=== PATIENT | male | born 1985 | race Caucasian/White ===

== ENCOUNTER 2021-10-06 17:03 | Inpatient (IN) | payer BC ==
[2021-10-06 21:03] VITALS: BMI 55.0
[2021-10-06] MEDS ORDERED: Ondansetron PF 4 MG/2 ML Vial IVP PRN (21:33)
[2021-10-06] MEDS ORDERED: Albuterol 200 PUFF (6.7GM INHALER) INH PRN (21:51)
[2021-10-06] MEDS ORDERED: hydrALAZINE 20 MG/ML VIAL SLOW IVP PRN (22:36)
[2021-10-06 22:48] LABS: #Eosinphils 0.1 thou/uL (0.0-0.7); #Lymphocytes 2.1 thou/uL (1.20-3.40); #Monocytes 0.9 thou/uL (0.11-0.59); #Neutrophils 11.7 thou/uL (1.40-6.50); %Basophils 0.2 % (0.0-1.0); %Eosinophils 0.6 % (0.0-10.0); %Lymphocytes 14.1 % (21.0-51.0); %Monocytes 6.3 % (0.0-10.0); %Neutrophils 78.8 % (42.0-75.0); Hemoglobin 15.5 g/dL (14.0-18.0); Mean Corpuscular HGB CONC 30.5 g/dL (32.0-36.0); Mean Corpuscular Hemoglobin 27.8 pg (27.0-31.0); Mean Corpuscular Volume 91.4 fL (78.0-98.0); Mean Platelet Volume 8.9 fL (7.4-10.4); Platelet Count 237 thou/uL (130-400); RBC Distribution Width 19.5 % (11.5-14.5); Red Blood Cell (RBC) Count 5.58 mill/uL (4.70-6.10); White Blood Cell (WBC) Count 14.9 thou/uL (4.8-10.8)
[2021-10-06] MEDS ORDERED: Sodium Chloride 0.9% 1,000 ML IV SCH (23:00)
[2021-10-06] MEDS ORDERED: Enoxaparin Sodium 40 MG/0.4 ML SYRINGE SC SCH (23:00)
[2021-10-06] MEDS ORDERED: Pantoprazole 40 MG VIAL IVP SCH (23:00)
[2021-10-06 23:07] LABS: Anion Gap 17 mmol/L (10-20); BUN (Urea Nitrogen) 36 mg/dL (8.9-20.6); Calc. Creatinine Clearance 296 mL/min (70-130); Calcium 8.1 mg/dL (7.8-10.44); Carbon Dioxide 25 mmol/L (22-29); Chloride 100 mmol/L (98-107); Estimated GFR 99; Glucose 114 mg/dL (70-105); Potassium 5.5 mmol/L (3.5-5.1); Sodium 136 mmol/L (136-145)
[2021-10-06] MEDS: Nicotine 21 MG PATCH TD SCH (23:55)
[2021-10-06] MEDS: Clindamycin/D5W 900 MG in Premix Bag 1 BAG IVPB SCH (23:59)
[2021-10-07] MEDS ORDERED: hydrOXYzine 25 MG TAB PO SCH (04:15)
[2021-10-07] MEDS: Acetaminophen 325 MG TAB PO PRN (04:18)
[2021-10-07 05:47] LABS: #Eosinphils 0.1 thou/uL (0.0-0.7); #Lymphocytes 1.6 thou/uL (1.20-3.40); #Monocytes 0.9 thou/uL (0.11-0.59); #Neutrophils 12.5 thou/uL (1.40-6.50); %Basophils 0.1 % (0.0-1.0); %Eosinophils 0.5 % (0.0-10.0); %Lymphocytes 10.6 % (21.0-51.0); %Monocytes 5.9 % (0.0-10.0); Hemoglobin 14.5 g/dL (14.0-18.0); Mean Corpuscular HGB CONC 29.8 g/dL (32.0-36.0); Mean Corpuscular Hemoglobin 27.6 pg (27.0-31.0); Mean Corpuscular Volume 92.7 fL (78.0-98.0); Platelet Count 241 thou/uL (130-400); RBC Distribution Width 18.8 % (11.5-14.5); Red Blood Cell (RBC) Count 5.24 mill/uL (4.70-6.10)
[2021-10-07 05:48] LABS: ALT (SGPT) 15 U/L (8-55); AST (SGOT) 13 U/L (5-34); Albumin 3.7 g/dL (3.5-5.0); Alkaline Phosphatase 42 U/L (40-110); Anion Gap 14 mmol/L (10-20); BUN (Urea Nitrogen) 35 mg/dL (8.9-20.6); Bilirubin, Total 0.6 mg/dL (0.2-1.2); Calc. Creatinine Clearance 274 mL/min (70-130); Carbon Dioxide 27 mmol/L (22-29); Cardiac Risk 4.2 (Less than 4.5); Chloride 99 mmol/L (98-107); Cholesterol 122 mg/dl (< 200 Desired); Estimated GFR 91; Globulin 3.9 g/dL (2.4-3.5); Glucose 115 mg/dL (70-105); HDL Cholesterol 29 mg/dL (>60 Neg Risk); LDL Cholesterol, Calculated 76 mg/dL; Potassium 5.8 mmol/L (3.5-5.1); Protein, Total 7.6 g/dL (6.0-8.3); Sodium 134 mmol/L (136-145); Triglycerides 87 mg/dL (Less than 150)
[2021-10-07 08:44] LABS: Base Excess (BEa) 2.2 mEq/L (-2.0 to +3.0); Calcium, Ionized (arterial) 1.08 mmol/L (1.12-1.30); Carboxyhemoglobin (COHb) 2.3 gm% (0.0-3.0); Hemoglobin (Hb) 15.8 g/dL (14.0-18.0); Potassium - ABG Lab 5.52 mmol/L (3.70-5.30); pH, Arterial 7.26 (7.35-7.45)
[2021-10-07 08:54] LABS: CO2 Tension 73.7 mmHg (35.0-45.0); O2 Tension (PaO2), arterial 36.9 mmHg (80.0-100.0)
[2021-10-07 08:55] LABS: ALV-art Gradient 20.705 mmHg (0-20)
[2021-10-07] MEDS: Clindamycin/D5W 900 MG in Premix Bag 1 BAG IVPB SCH (09:00)
[2021-10-07] MEDS: Pantoprazole 40 MG VIAL IVP SCH (09:00)
[2021-10-07] MEDS ORDERED: Enoxaparin Sodium 40 MG/0.4 ML SYRINGE SC SCH (09:00)
[2021-10-07] MEDS ORDERED: Furosemide 20 MG TAB PO SCH (09:00)
[2021-10-07] MEDS ORDERED: cefTRIAXone\\ROCEPHIN 2 GM in Sodium Chloride 0.9% 100 ML IVPB SCH (10:00)
[2021-10-07] MEDS: Vancomycin 1 GM in Premix Bag 1 BAG IVPB SCH ×2 (10:01→21:10)
[2021-10-07 10:22] LABS: Anion Gap 12 mmol/L (10-20); BUN (Urea Nitrogen) 35 mg/dL (8.9-20.6); Calc. Creatinine Clearance 277 mL/min (70-130); Calcium 8.2 mg/dL (7.8-10.44); Carbon Dioxide 30 mmol/L (22-29); Chloride 99 mmol/L (98-107); Estimated GFR 92; Glucose 137 mg/dL (70-105); Magnesium 2.4 mg/dL (1.6-2.6); Potassium 5.3 mmol/L (3.5-5.1); Sodium 136 mmol/L (136-145)
[2021-10-07 10:33] LABS: INR-International Normal Ratio 1.1; PTT 30.9 sec (22.9-36.1); Prothrombin Time 14.3 sec (12.0-14.7)
[2021-10-07 12:00] LABS: Legionella Urinary Ag Negative (Negative); Strep pneumo Urine Ag NEGATIVE (NEGATIVE)
[2021-10-07] MEDS: Cefepime 2 GM in Sodium Chloride 0.9% 100 ML IVPB SCH ×2 (14:01→21:09)
[2021-10-07 14:38] LABS: Troponin I Less than 0.010 ng/mL (< 0.028)
[2021-10-07 17:14] LABS: Anion Gap 13 mmol/L (10-20); BUN (Urea Nitrogen) 30 mg/dL (8.9-20.6); Calc. Creatinine Clearance 311 mL/min (70-130); Calcium 8.2 mg/dL (7.8-10.44); Carbon Dioxide 31 mmol/L (22-29); Chloride 97 mmol/L (98-107); Estimated GFR 106; Glucose 113 mg/dL (70-105); Potassium 5.1 mmol/L (3.5-5.1); Sodium 136 mmol/L (136-145)
[2021-10-07] MEDS: Nystatin Powder 15 GM BOT TOP SCH (21:09)
[2021-10-07] MEDS: Enoxaparin Sodium 40 MG/0.4 ML SYRINGE SC SCH (21:10)
[2021-10-07 21:46] LABS: Amphetamine Not Detected (NotDetected); Barbiturates Screen Not Detected (NotDetected); Benzodiazepine Screen Detected (NotDetected); Cocaine Metabolite Screen Not Detected (NotDetected); Methadone Not Detected (NotDetected); Methamphetamine Not Detected (NotDetected); Opiate Screen Not Detected (NotDetected); Oxycodone Screen Not Detected (NotDetected); Phencyclidine (PCP) Not Detected (NotDetected); THC/Cannabinoid Screen Detected (NotDetected); Tricyclic Screen Not Detected (NotDetected)
[2021-10-07] MEDS: Nicotine 21 MG PATCH TD SCH (22:12)
[2021-10-07 22:31] LABS: Troponin I Less than 0.010 ng/mL (< 0.028)
[2021-10-08 04:46] LABS: ALT (SGPT) 14 U/L (8-55); AST (SGOT) 22 U/L (5-34); Albumin 3.8 g/dL (3.5-5.0); Alkaline Phosphatase 46 U/L (40-110); Anion Gap 17 mmol/L (10-20); BUN (Urea Nitrogen) 28 mg/dL (8.9-20.6); Bilirubin, Total 0.5 mg/dL (0.2-1.2); Calc. Creatinine Clearance 321 mL/min (70-130); Calcium 8.2 mg/dL (7.8-10.44); Carbon Dioxide 27 mmol/L (22-29); Chloride 96 mmol/L (98-107); Estimated GFR 110; Globulin 4.7 g/dL (2.4-3.5); Glucose 142 mg/dL (70-105); Magnesium 2.7 mg/dL (1.6-2.6); Protein, Total 8.5 g/dL (6.0-8.3); Sodium 134 mmol/L (136-145)
[2021-10-08] MEDS: Cefepime 2 GM in Sodium Chloride 0.9% 100 ML IVPB SCH ×3 (05:00→21:07)
[2021-10-08 05:48] LABS: #Lymphocytes 0.8 thou/uL (1.20-3.40); #Monocytes 0.7 thou/uL (0.11-0.59); %Basophils 0.1 % (0.0-1.0); %Eosinophils 0.1 % (0.0-10.0); %Lymphocytes 5.3 % (21.0-51.0); %Monocytes 4.9 % (0.0-10.0); %Neutrophils 89.5 % (42.0-75.0); Hemoglobin 14.9 g/dL (14.0-18.0); Mean Corpuscular HGB CONC 29.8 g/dL (32.0-36.0); Mean Corpuscular Hemoglobin 27.5 pg (27.0-31.0); Mean Corpuscular Volume 92.2 fL (78.0-98.0); Mean Platelet Volume 9.3 fL (7.4-10.4); Platelet Count 202 thou/uL (130-400); RBC Distribution Width 18.8 % (11.5-14.5); Red Blood Cell (RBC) Count 5.43 mill/uL (4.70-6.10); White Blood Cell (WBC) Count 14.5 thou/uL (4.8-10.8)
[2021-10-08] MEDS: LOKELMA 10 GM PACKET PO SCH ×3 (07:39→20:56)
[2021-10-08] MEDS: Vancomycin 1 GM in Premix Bag 1 BAG IVPB SCH ×2 (07:39→22:53)
[2021-10-08] MEDS: Enoxaparin Sodium 40 MG/0.4 ML SYRINGE SC SCH (07:39)
[2021-10-08] MEDS: Nystatin Powder 15 GM BOT TOP SCH ×2 (07:41→20:57)
[2021-10-08] MEDS: Pantoprazole 40 MG VIAL IVP SCH (07:41)
[2021-10-08 07:45] LABS: Actual Bicarbonate (HCO3a) 35.2 mEq/L (22-28); Base Excess (BEa) 3.1 mEq/L (-2.0 to +3.0); Calcium, Ionized (arterial) 1.12 mmol/L (1.12-1.30); Hemoglobin (Hb) 15.1 g/dL (14.0-18.0); O2 Tension (PaO2), arterial 90.4 mmHg (80.0-100.0); Potassium - ABG Lab 5.39 mmol/L (3.70-5.30)
[2021-10-08 07:58] LABS: CO2 Tension 96.7 mmHg (35.0-45.0); Puncture Site RRA; pH, Arterial 7.18 (7.35-7.45)
[2021-10-08 07:59] LABS: ALV-art Gradient 145.225 mmHg (0-20)
[2021-10-08] MEDS ORDERED: Furosemide 40 MG/4 ML VIAL SLOW IVP SCH (09:45)
[2021-10-08] MEDS: Sodium Chloride 0.9% 1,000 ML IV SCH (10:03)
[2021-10-08] MEDS: Acetaminophen 325 MG TAB PO PRN ×2 (10:07→21:06)
[2021-10-08] MEDS: Heparin 5,000 UNITS/ML VIAL SC SCH (20:58)
[2021-10-08] MEDS: VANCOMYCIN 2 GRAM/500 ML BAG 2 GM in Premix Bag 1 BAG IVPB SCH (22:57)
[2021-10-08] MEDS: Nicotine 21 MG PATCH TD SCH (22:58)
[2021-10-09 03:58] LABS: #Eosinphils 0.1 thou/uL (0.0-0.7); #Lymphocytes 1.2 thou/uL (1.20-3.40); #Monocytes 0.7 thou/uL (0.11-0.59); #Neutrophils 10.1 thou/uL (1.40-6.50); %Eosinophils 0.7 % (0.0-10.0); %Lymphocytes 9.6 % (21.0-51.0); %Monocytes 5.5 % (0.0-10.0); %Neutrophils 84.3 % (42.0-75.0); Hemoglobin 13.8 g/dL (14.0-18.0); Mean Corpuscular HGB CONC 30.4 g/dL (32.0-36.0); Mean Corpuscular Hemoglobin 27.9 pg (27.0-31.0); Mean Corpuscular Volume 91.9 fL (78.0-98.0); Mean Platelet Volume 9.3 fL (7.4-10.4); Platelet Count 167 thou/uL (130-400); RBC Distribution Width 18.4 % (11.5-14.5); Red Blood Cell (RBC) Count 4.93 mill/uL (4.70-6.10)
[2021-10-09 04:11] LABS: ALT (SGPT) 11 U/L (8-55); AST (SGOT) 8 U/L (5-34); Albumin 3.5 g/dL (3.5-5.0); Alkaline Phosphatase 36 U/L (40-110); Anion Gap 14 mmol/L (10-20); BUN (Urea Nitrogen) 23 mg/dL (8.9-20.6); Bilirubin, Total 0.8 mg/dL (0.2-1.2); Calc. Creatinine Clearance 388 mL/min (70-130); Calcium 8.2 mg/dL (7.8-10.44); Carbon Dioxide 30 mmol/L (22-29); Chloride 97 mmol/L (98-107); Estimated GFR 120; Globulin 3.8 g/dL (2.4-3.5); Glucose 115 mg/dL (70-105); Magnesium 2.3 mg/dL (1.6-2.6); Potassium 4.3 mmol/L (3.5-5.1); Protein, Total 7.3 g/dL (6.0-8.3); Sodium 137 mmol/L (136-145)
[2021-10-09] MEDS: Cefepime 2 GM in Sodium Chloride 0.9% 100 ML IVPB SCH ×3 (06:13→21:58)
[2021-10-09] MEDS: VANCOMYCIN 2 GRAM/500 ML BAG 2 GM in Premix Bag 1 BAG IVPB SCH ×2 (06:14→17:43)
[2021-10-09] MEDS: Nystatin Powder 15 GM BOT TOP SCH ×2 (08:07→21:59)
[2021-10-09] MEDS: Heparin 5,000 UNITS/ML VIAL SC SCH ×3 (08:07→21:58)
[2021-10-09] MEDS: Pantoprazole 40 MG VIAL IVP SCH (08:08)
[2021-10-09 09:02] LABS: Actual Bicarbonate (HCO3a) 37.1 mEq/L (22-28); Base Excess (BEa) 8.4 mEq/L (-2.0 to +3.0); Calcium, Ionized (arterial) 1.11 mmol/L (1.12-1.30); Carboxyhemoglobin (COHb) 1.8 gm% (0.0-3.0); Hemoglobin (Hb) 14.4 g/dL (14.0-18.0); O2 Tension (PaO2), arterial 69.8 mmHg (80.0-100.0); Potassium - ABG Lab 4.03 mmol/L (3.70-5.30); pH, Arterial 7.34 (7.35-7.45)
[2021-10-09 09:04] LABS: CO2 Tension 70.3 mmHg (35.0-45.0); Puncture Site RRA
[2021-10-09] MEDS: Sodium Chloride 0.9% 1,000 ML IV SCH (11:31)
[2021-10-09] MEDS: Nicotine 21 MG PATCH TD SCH (21:59)
[2021-10-10] MEDS: VANCOMYCIN 2 GRAM/500 ML BAG 2 GM in Premix Bag 1 BAG IVPB SCH ×2 (01:16→12:54)
[2021-10-10] MEDS: Acetaminophen 325 MG TAB PO PRN (04:16)
[2021-10-10 04:37] LABS: #Eosinphils 0.1 thou/uL (0.0-0.7); #Lymphocytes 1.4 thou/uL (1.20-3.40); #Monocytes 0.8 thou/uL (0.11-0.59); #Neutrophils 9.8 thou/uL (1.40-6.50); %Basophils 0.1 % (0.0-1.0); %Eosinophils 0.8 % (0.0-10.0); %Lymphocytes 11.8 % (21.0-51.0); %Monocytes 6.3 % (0.0-10.0); Hemoglobin 13.1 g/dL (14.0-18.0); Mean Corpuscular HGB CONC 30.5 g/dL (32.0-36.0); Mean Corpuscular Hemoglobin 27.6 pg (27.0-31.0); Mean Corpuscular Volume 90.5 fL (78.0-98.0); Mean Platelet Volume 9.3 fL (7.4-10.4); Platelet Count 166 thou/uL (130-400); Red Blood Cell (RBC) Count 4.76 mill/uL (4.70-6.10); White Blood Cell (WBC) Count 12.1 thou/uL (4.8-10.8)
[2021-10-10 05:00] LABS: ALT (SGPT) 10 U/L (8-55); AST (SGOT) 8 U/L (5-34); Albumin 3.4 g/dL (3.5-5.0); Alkaline Phosphatase 35 U/L (40-110); Anion Gap 12 mmol/L (10-20); BUN (Urea Nitrogen) 18 mg/dL (8.9-20.6); Bilirubin, Total 0.9 mg/dL (0.2-1.2); Calc. Creatinine Clearance 427 mL/min (70-130); Calcium 8.5 mg/dL (7.8-10.44); Carbon Dioxide 31 mmol/L (22-29); Chloride 98 mmol/L (98-107); Estimated GFR 123; Globulin 3.6 g/dL (2.4-3.5); Glucose 104 mg/dL (70-105); Magnesium 2.2 mg/dL (1.6-2.6); Sodium 137 mmol/L (136-145)
[2021-10-10] MEDS: Cefepime 2 GM in Sodium Chloride 0.9% 100 ML IVPB SCH ×3 (06:20→21:38)
[2021-10-10] MEDS: Nystatin Powder 15 GM BOT TOP SCH ×2 (08:30→21:40)
[2021-10-10] MEDS: Heparin 5,000 UNITS/ML VIAL SC SCH ×3 (08:30→21:39)
[2021-10-10] MEDS: Pantoprazole 40 MG VIAL IVP SCH (08:40)
[2021-10-10 09:47] LABS: Vancomycin, Trough 18.9 ug/mL
[2021-10-10] MEDS: Sodium Chloride 0.9% 1,000 ML IV SCH (11:27)
[2021-10-10] MEDS: Vancomycin 1.5 GRAM/300 ML BAG 1.5 GM in Premix Bag 1 BAG IVPB SCH ×2 (14:48→22:15)
[2021-10-10] MEDS: Nicotine 21 MG PATCH TD SCH (22:15)
[2021-10-11] MEDS: Sodium Chloride 0.9% 1,000 ML IV SCH (02:27)
[2021-10-11] MEDS: Acetaminophen 325 MG TAB PO PRN ×2 (02:33→22:52)
[2021-10-11 03:57] LABS: #Eosinphils 0.2 thou/uL (0.0-0.7); #Lymphocytes 1.3 thou/uL (1.20-3.40); #Monocytes 0.6 thou/uL (0.11-0.59); #Neutrophils 7.3 thou/uL (1.40-6.50); %Basophils 0.1 % (0.0-1.0); %Eosinophils 1.9 % (0.0-10.0); %Lymphocytes 13.4 % (21.0-51.0); %Monocytes 6.4 % (0.0-10.0); %Neutrophils 78.2 % (42.0-75.0); Hemoglobin 13.1 g/dL (14.0-18.0); Mean Corpuscular HGB CONC 30.3 g/dL (32.0-36.0); Mean Corpuscular Volume 92.4 fL (78.0-98.0); Mean Platelet Volume 9.9 fL (7.4-10.4); Platelet Count 165 thou/uL (130-400); RBC Distribution Width 17.9 % (11.5-14.5); Red Blood Cell (RBC) Count 4.67 mill/uL (4.70-6.10); White Blood Cell (WBC) Count 9.3 thou/uL (4.8-10.8)
[2021-10-11 04:21] LABS: ALT (SGPT) 10 U/L (8-55); AST (SGOT) 11 U/L (5-34); Albumin 3.3 g/dL (3.5-5.0); Alkaline Phosphatase 35 U/L (40-110); Anion Gap 14 mmol/L (10-20); BUN (Urea Nitrogen) 18 mg/dL (8.9-20.6); Bilirubin, Total 0.7 mg/dL (0.2-1.2); Calc. Creatinine Clearance 393 mL/min (70-130); Calcium 8.7 mg/dL (7.8-10.44); Carbon Dioxide 30 mmol/L (22-29); Chloride 99 mmol/L (98-107); Estimated GFR 120; Globulin 3.7 g/dL (2.4-3.5); Glucose 119 mg/dL (70-105); Magnesium 2.1 mg/dL (1.6-2.6); Sodium 139 mmol/L (136-145)
[2021-10-11] MEDS: Cefepime 2 GM in Sodium Chloride 0.9% 100 ML IVPB SCH (05:50)
[2021-10-11] MEDS: Vancomycin 1.5 GRAM/300 ML BAG 1.5 GM in Premix Bag 1 BAG IVPB SCH (05:51)
[2021-10-11] MEDS: Heparin 5,000 UNITS/ML VIAL SC SCH ×3 (08:14→22:52)
[2021-10-11] MEDS: Nystatin Powder 15 GM BOT TOP SCH ×2 (08:15→22:53)
[2021-10-11] MEDS: Pantoprazole 40 MG VIAL IVP SCH (08:16)
[2021-10-11] MEDS: Nicotine 21 MG PATCH TD SCH (22:53)
[2021-10-12 06:47] LABS: #Eosinphils 0.2 thou/uL (0.0-0.7); #Lymphocytes 1.3 thou/uL (1.20-3.40); #Monocytes 0.5 thou/uL (0.11-0.59); #Neutrophils 6.8 thou/uL (1.40-6.50); %Basophils 0.1 % (0.0-1.0); %Lymphocytes 14.9 % (21.0-51.0); %Monocytes 5.7 % (0.0-10.0); %Neutrophils 77.3 % (42.0-75.0); Hemoglobin 13.2 g/dL (14.0-18.0); Mean Corpuscular HGB CONC 30.7 g/dL (32.0-36.0); Mean Corpuscular Hemoglobin 27.7 pg (27.0-31.0); Mean Corpuscular Volume 90.1 fL (78.0-98.0); Mean Platelet Volume 9.8 fL (7.4-10.4); Platelet Count 158 thou/uL (130-400); RBC Distribution Width 17.7 % (11.5-14.5); Red Blood Cell (RBC) Count 4.78 mill/uL (4.70-6.10); White Blood Cell (WBC) Count 8.7 thou/uL (4.8-10.8)
[2021-10-12 06:52] LABS: ALT (SGPT) 13 U/L (8-55); AST (SGOT) 13 U/L (5-34); Albumin 3.3 g/dL (3.5-5.0); Alkaline Phosphatase 41 U/L (40-110); Anion Gap 15 mmol/L (10-20); BUN (Urea Nitrogen) 14 mg/dL (8.9-20.6); Bilirubin, Total 0.7 mg/dL (0.2-1.2); Calc. Creatinine Clearance 433 mL/min (70-130); Carbon Dioxide 30 mmol/L (22-29); Chloride 99 mmol/L (98-107); Estimated GFR 124; Globulin 3.6 g/dL (2.4-3.5); Glucose 71 mg/dL (70-105); Potassium 4.3 mmol/L (3.5-5.1); Protein, Total 6.9 g/dL (6.0-8.3); Sodium 140 mmol/L (136-145)
[2021-10-12] MEDS: Pantoprazole 40 MG VIAL IVP SCH (08:49)
[2021-10-12] MEDS: Heparin 5,000 UNITS/ML VIAL SC SCH ×3 (08:50→20:14)
[2021-10-12] MEDS: Nystatin Powder 15 GM BOT TOP SCH ×2 (08:51→20:15)
[2021-10-12] MEDS: Sodium Chloride 0.9% 1,000 ML IV SCH (10:07)
[2021-10-12 16:03] VITALS: BP 160/94
[2021-10-13] MEDS: Acetaminophen 325 MG TAB PO PRN (00:49)
[2021-10-13] MEDS: Nicotine 21 MG PATCH TD SCH (00:49)
[2021-10-13 03:57] LABS: #Eosinphils 0.2 thou/uL (0.0-0.7); #Lymphocytes 1.3 thou/uL (1.20-3.40); #Monocytes 0.5 thou/uL (0.11-0.59); #Neutrophils 7.5 thou/uL (1.40-6.50); %Eosinophils 1.8 % (0.0-10.0); %Lymphocytes 13.9 % (21.0-51.0); %Monocytes 5.7 % (0.0-10.0); %Neutrophils 78.7 % (42.0-75.0); Hemoglobin 13.6 g/dL (14.0-18.0); Mean Corpuscular HGB CONC 31.2 g/dL (32.0-36.0); Mean Corpuscular Hemoglobin 28.1 pg (27.0-31.0); Mean Corpuscular Volume 89.9 fL (78.0-98.0); Mean Platelet Volume 9.2 fL (7.4-10.4); Platelet Count 146 thou/uL (130-400); RBC Distribution Width 17.5 % (11.5-14.5); Red Blood Cell (RBC) Count 4.84 mill/uL (4.70-6.10); White Blood Cell (WBC) Count 9.5 thou/uL (4.8-10.8)
[2021-10-13 04:18] LABS: ALT (SGPT) 24 U/L (8-55); AST (SGOT) 24 U/L (5-34); Albumin 3.3 g/dL (3.5-5.0); Alkaline Phosphatase 35 U/L (40-110); Anion Gap 13 mmol/L (10-20); BUN (Urea Nitrogen) 14 mg/dL (8.9-20.6); Bilirubin, Total 0.9 mg/dL (0.2-1.2); Calc. Creatinine Clearance 419 mL/min (70-130); Calcium 9.3 mg/dL (7.8-10.44); Carbon Dioxide 34 mmol/L (22-29); Chloride 96 mmol/L (98-107); Estimated GFR 123; Globulin 3.9 g/dL (2.4-3.5); Glucose 99 mg/dL (70-105); Magnesium 1.7 mg/dL (1.6-2.6); Potassium 4.4 mmol/L (3.5-5.1); Protein, Total 7.2 g/dL (6.0-8.3); Sodium 139 mmol/L (136-145)
[2021-10-13] MEDS: Heparin 5,000 UNITS/ML VIAL SC SCH ×2 (10:02→16:09)
[2021-10-13] MEDS: Nystatin Powder 15 GM BOT TOP SCH (10:03)
[2021-10-13 15:47] VITALS: TEMP 98.7
== END 2021-10-13 18:17 | disposition home or self-care (01) | DRG 205 ==
LOC: T4-A 19:52 → IMCU/EMU 10-07 13:24
PROVIDERS: ADMIT Internal Medicine; ATTEND Internal Medicine
DX: E66.2 Morbid (severe) obesity with alveolar hypoventilation (principal); J18.9 Pneumonia, unspecified organism; J96.21 Acute and chronic respiratory failure with hypoxia; G93.41 Metabolic encephalopathy; J96.22 Acute and chronic respiratory failure with hypercapnia; L03.311 Cellulitis of abdominal wall; Z68.43 Body mass index [BMI] 50.0-59.9, adult; J45.901 Unspecified asthma with (acute) exacerbation; Z20.822 Contact with and (suspected) exposure to COVID-19; F17.210 Nicotine dependence, cigarettes, uncomplicated; I89.0 Lymphedema, not elsewhere classified; E87.5 Hyperkalemia; I12.9 Hypertensive chronic kidney disease with stage 1 through stage 4 chronic kidney disease, or unspecified chronic kidney disease; N18.1 Chronic kidney disease, stage 1; K80.20 Calculus of gallbladder without cholecystitis without obstruction; R16.0 Hepatomegaly, not elsewhere classified; D63.1 Anemia in chronic kidney disease
CPT/HCPCS: 36415; 36416; 36600; 71045; 76705; 80053; 80061; 80202; 80306; 82533; 82805; 83036; 83605; 83735; 83880; 84443; 84484; 85025; 85610; 85730; 86850; 86900; 86901; 87081; 87449; 87899; 93005; 93010; 93306; 93970; 94640; 94660; 97139; C9113; J0692; J1644; J1650; J1940; J1956; J2405; J3370; J3490; J7050; J7620

== ENCOUNTER 2022-03-28 15:48 | Outpatient (CLI) | payer MEDICAID, OTHER | END 2022-03-28 15:49 | disposition home or self-care (01) | LOC: RAD 15:48 | PROVIDERS: ATTEND Internal Medicine | DX: E66.2 Morbid (severe) obesity with alveolar hypoventilation (principal); J40 Bronchitis, not specified as acute or chronic | CPT/HCPCS: 71046 ==